=== PATIENT | male | born 1975 | race Caucasian/White ===

== ENCOUNTER → 2023-09-26 13:00 | Outpatient (CLI) | payer BC, SELFPAY ==
--- NOTE | 2023-09-26 13:00 | DI.RAD_ITS ---
Exam(s) XR TOE RT GREAT EXAM: XR TOE RT GREAT CLINICAL HISTORY: PAIN IN TOE [id number]. TECHNIQUE: 2D digital imaging was performed of the right great toe. Three images were obtained. AP , oblique and lateral views were obtained. COMPARISON: No exams were available for comparison FINDINGS: BONES: No acute fracture is present. No bony destructive lesion is seen. JOINTS: No dislocation present. The joint spaces are well maintained. There is a small spur at the p osterior aspect of the head of the 1st metatarsal bone. SOFT TISSUE: Normal. No radiopaque foreign body. No subcutaneous gas. IMPRESSION: No acute fracture or dislocation. DATA REPOSITORY: RADIATION DOSE DELIVERED:
== END ==
PROVIDERS: Visit Provider Physician Assistant
DX: M79.671 Pain in right foot (principal)
CPT/HCPCS: 73660

== ENCOUNTER 2023-09-26 13:14 | Outpatient (REF) | payer BC, SELFPAY ==
[2023-09-26 21:19] LABS: Abs Immature Grans 0.03 10^3/uL (0.0-0.06); Absolute Basophil Count 0.09 10^3/uL (0.0-0.2); Absolute Eosinophil Count 0.21 10^3/uL (0.0-0.7); Absolute Lymphocyte Count 2.63 10^3/uL (1.2-3.4); Absolute Monocyte Count 0.52 10^3/uL (0.1-0.8); Absolute Neutrophil Count 5.97 10^3/uL (1.2-6.7); Eosinophils % 2.2; HCT 45.8 % (40.0-50.0); HGB 16.4 g/dL (13.5-17.5); Immature Grans % 0.3; Lymphocytes % 27.8; MCH 30.1 pg (27.0-33.0); MCHC 35.8 % (32.0-36.0); MCV 84 fL (80-95); Monocytes % 5.5; Neutrophils % 63.2; Platelet Count 264 10^3/uL (130-400); RBC 5.45 10^6/uL (4.36-5.78); RDW-SD 35.9 fL; WBC 9.45 10^3/uL (4.4-10.8)
[2023-09-26 21:39] LABS: Uric Acid 6.7 mg/dL (3.5-7.2)
== END 2023-09-26 13:15 | disposition home or self-care (01) ==
LOC: LBN 13:14
PROVIDERS: Visit Provider Physician Assistant
DX: M79.674 Pain in right toe(s) (principal)
CPT/HCPCS: 84550; 85025